=== PATIENT | male | born 1950 | race Caucasian/White ===

== ENCOUNTER 2017-02-25 11:25 | Emergency (ER) | payer OTHER ==
[~2017-02-25] VITALS: Ht 177.8 cm; Wt 149.5 kg
[2017-02-25 11:28] VITALS: BP 176/92; PULSE 62; RESP 16; TEMP 97.7; O2SAT 97
[2017-02-25] MEDS ORDERED: MECLIZINE HCL 25 MG TAB PO ONE (12:00)
[2017-02-25] MEDS ORDERED: DIAZEPAM 10 MG TAB PO ONE (12:00)
[2017-02-25] MEDS ORDERED: ONDANSETRON ODT 4 MG TAB PO ONE (12:00)
[2017-02-25] MEDS ORDERED: PROM25TA5 PO (12:25)
[2017-02-25] MEDS ORDERED: MECL1TAB42 PO (12:25)
--- NOTE | 2017-02-25 12:25 | PD ---
HPI Chief Complaint: Dizziness Time Seen by Provider: 12:19 Travel History International Travel<30 days: No Contact w/Intl Traveler<30days: No Traveled to known affect area: No History of Present Illness HPI 66-year-old white male presents to emergency department with complaints of dizziness. He states that he had gone to bed last evening in his normal state of health. He does report some sinus congestion, runny nose and some mild ear discomfort over last couple days. He states that he woke up this morning and fell back asleep. When he woke up a second time he noticed that when he turned his head to the left he had the distinct sensation that he was spinning. He states that he laid still the spinning would stop. Every time he sat up or turn his head to the left he would get the sensation of movement. This was followed by nausea area he said he actually felt as if he was going to vomit. He denies any headache. No neck pain. No numbness, tingling or weakness. No speech deficits. No problems with coordinated activities. Patient denies any history of stroke. He denies any history of vertigo in the past. He does admit to having some allergy problems at times. He has chronic hearing loss and wears hearing aids. Patient checked his sugars this morning and it was 190 prior to coming in. [facility] Past Medical History Narrative Medical Coronary artery disease, PA, hypertension, diabetes, hypercholesterolemia, asthma, chronic back pain, chronic arthritis Hx Anticoagulant Therapy: Yes (ASPIRIN) Cardiovascular Problems: Yes (STENT) High Cholesterol: Yes Diabetes: Yes Patient Takes Glucophage: Yes (METFORMIN) Hypertension: Yes Medical other: Yes (" MAKER" "BACK SIDE OF HEART") Respiratory: Yes (ASTHMA) Myocardial Infarction: Yes Tetanus Vaccination: < 5 Years Past Surgical History Narrative Surgical Tonsillectomy, appendectomy, PTCA and stent placement Appendectomy: Yes Endocrine Surgery: Yes (NON CA LYMPH NODE REMOVAL ) Tonsillectomy: Yes Social History Alcohol Use: Yes (OCC) Tobacco Use: No Substance Use: No Allergies-Medications (Allergen,Severity, Reaction): Coded Allergies: No Known Allergies (Unverified , 02/25/17) Review of Systems Except as stated in HPI: all other systems reviewed are Neg Physical Exam Narrative GENERAL: Well-developed, well-nourished in no apparent distress. Nontoxic appearing. HEAD: Normocephalic, atraumatic. EYES: Pupils equal round and reactive. Extraocular motions intact. No scleral icterus. No injection or drainage. No nystagmus. ENT: Nose clear. Throat without erythema, tonsillar hypertrophy or exudate. Uvula midline. Airway patent. NECK: Trachea midline. Supple, nontender, moves head freely. No central bony tenderness or spasm. No carotid bruits. CARDIOVASCULAR: Regular rate and rhythm without murmurs, gallops, or rubs. RESPIRATORY: Clear to auscultation. Breath sounds equal bilaterally. No wheezes , rales, or rhonchi. GASTROINTESTINAL: Abdomen soft, non-tender, nondistended. No hepato-splenomegaly , or palpable masses. No guarding. EXTREMITIES: No clubbing, cyanosis, or edema. No joint tenderness. BACK: Nontender without deformity. No flank tenderness. NEUROLOGICAL: Awake, alert and oriented x 3 .Cranial nerves grossly intact. Motor and sensory grossly within normal limits. Normal speech. Normal finger to nose. Normal [id number]. Patient has intact 5 out of 5 muscle strength in all extremities bilaterally. Data Data Last Documented VS Vital Signs Date Time Temp Pulse Resp B/P Pulse Ox O2 Delivery O2 Flow Rate FiO2 02/25/17 11:28 97.7 62 16 176/92 97 Orders Ondansetron Odt (Zofran Odt) (02/25/17 12:00) Meclizine (Antivert) (02/25/17 12:00) Diazepam (Valium) (02/25/17 12:00) [facility] Medical Decision Making Medical Screen Exam Complete: Yes Emergency Medical Condition: Yes Medical Record Reviewed: Yes Differential Diagnosis Differential diagnoses: Posterior circulation problem, labyrinthitis, positional vertigo, diabetes Narrative Course Patient's given 4 mg of Zofran by mouth, Antivert 50 mg by mouth and 10 mg of Valium. Patient has had improvement of his symptoms. This is positional vertigo. Diagnosis Primary Impression: Positional vertigo Qualified Code: H81.10 - Positional vertigo, unspecified laterality Patient Instructions: General Instructions Additional Instructions: Rest. Moves slowly. Antivert. Phenergan for nausea. Follow-up with a primary care doctor in the next 3-5 days for recheck. Return to the ER symptoms worsen or problems develop. Med/Other Pt SpecificInfo: Prescription(s) given Disposition: 01 DISCHARGE HOME Condition: Stable Edmond Seth Feb 25, 2017 12:25
== END 2017-02-25 13:33 | disposition home or self-care (01) ==
LOC: NEPD 11:25
DX: H81.10 Benign paroxysmal vertigo, unspecified ear (principal); I25.10 Atherosclerotic heart disease of native coronary artery without angina pectoris; E11.9 Type 2 diabetes mellitus without complications; I10 Essential (primary) hypertension; I25.2 Old myocardial infarction; J45.909 Unspecified asthma, uncomplicated; H91.90 Unspecified hearing loss, unspecified ear; E78.00 Pure hypercholesterolemia, unspecified; M19.90 Unspecified osteoarthritis, unspecified site
CPT/HCPCS: 99283